=== PATIENT | female | born 1995 | race Two or more races ===

== ENCOUNTER 2018-06-15 11:08 | Day surgery (SDC) | payer OTHER ==
[~2018-06-15] VITALS: Ht 167.6 cm; Wt 77.6 kg
[2018-06-15] VITALS (9 sets, daily range): BP systolic 104–145; BP diastolic 62–73
[2018-06-15] MEDS ORDERED: celeBREX 200mg Cap **SURGERY PATIENTS ONLY ORAL ONE ×2 (12:56→13:00)
[2018-06-15] MEDS ORDERED: oxyCONTIN 20mg tab ORAL ONE ×2 (12:56→13:00)
[2018-06-15] MEDS ORDERED: IBUPROFEN600 MG ORAL (13:00)
[2018-06-15] MEDS ORDERED: ceFAZolin 1gm IVPB IVPB ONE ×2 (13:00)
--- NOTE | 2018-06-15 14:27 | Pre-Procedure Note/Attestation ---
Pre-Procedure Note/Attestation Complete Prior to Procedure Planned Procedure: right Procedure Narrative: forearm painful hardware Indications for Procedure Pre-Operative Diagnosis: sp right forearm orif Attestation I attest that I discussed the nature of the procedure; its benefits; risks and complications; and alternatives (and the risks and benefits of such alternatives ), prior to the procedure, with the patient (or the patient's legal floor representative). I attest that, if there was a reasonable possibility of needing a blood transfusion, the patient (or the patient's legal floor representative) was given the [facility] standardized written summary, pursuant to the Kuldip Saticoy Blood Safety Act ([place] Health and Safety Code # 1645, as amended). I attest that I re-evaluated the patient just prior to the surgery and that there has been no change in the patient's H&P, except as documented below: Peter Torres MD Jun 15, 2018 14:27
--- NOTE | 2018-06-15 14:28 | Operative Note - PDOC ---
Operative Note Operative Note Pre-op Diagnosis: sp right forearm orif Procedure: see op report Post-op Diagnosis: same as pre-op plus Operative Findings: consistent w/pre-op dx studies Anesthesia: MAC Specimen: none Complications: none Condition: stable Estimated Blood Loss: none Implant(s) used?: No Peter Torres MD Jun 15, 2018 14:28
[2018-06-15] MEDS ORDERED: D5 1/2NS 1,000 ML IV SCH (14:30)
[2018-06-15] MEDS ORDERED: Tylenol #3 tab (300mg/30mg) ORAL PRN (14:30)
[2018-06-15] MEDS ORDERED: HYDROmorphone 1mg/ml Carpuject SUBQ PRN (14:30)
[2018-06-15] MEDS ORDERED: fentaNYL 100 mcg/2 mL IV ONE (14:38)
[2018-06-15] MEDS ORDERED: Midazolam 2mg/2ml Inj ONE (14:38)
[2018-06-15] MEDS ORDERED: Bacitracin 50000 Units Vial ONE (15:10)
[2018-06-15] MEDS ORDERED: Bupivacaine 0.5% Inj 30 ml vial INJ ONE (15:10)
[2018-06-15] MEDS ORDERED: NS Irrig 1000ml IRRIG ONE (15:58)
[2018-06-15] MEDS ORDERED: LR 1000ml ONE (16:00)
[2018-06-15] MEDS ORDERED: Ketorolac 30mg Inj ONE (16:00)
[2018-06-15] MEDS ORDERED: Propofol 200mg/20ml IV ONE (16:00)
[2018-06-15] MEDS ORDERED: NS Irrig 2000ml IRRIG ONE (16:00)
[2018-06-15] MEDS ORDERED: Sterile Water Irrig 1000ml IRRIG ONE (16:00)
[2018-06-15] MEDS ORDERED: LR 1000ml 1,000 ML IVLG SCH (16:11)
--- NOTE | 2018-06-15 16:11 | Anethesia Preoperative Eval ---
Anesthesia Pre-op PMH/ROS General Date of Evaluation: Jun 15, 2018 Time of Evaluation: 15:10 Anesthesiologist: Narendra ASA Score: ASA 2 Mallampati Score Class I : Soft palate, uvula, fauces, pillars visible Class II: Soft palate, uvula, fauces visible Class III: Soft palate, base of uvula visible Class IV: Only hard plate visible Mallampati Classification: Class II Surgeon: Brian Diagnosis: Painful hardwear R arm Surgical Procedure: R arm hardwear removal Anesthesia History: none Family History: no anesthesia problems Allergies: Coded Allergies: No Known Allergies (Unverified , 06/15/18) Patient NPO?: Yes NPO Date: Jun 14, 2018 NPO Time: 2100 Past Medical History Cardiovascular: Denies: HTN, CAD, HI, valve dz, arrhythmia, other Pulmonary: Denies: asthma, COPD, JOSÉ LUIS, other Gastrointestinal/Genitourinary: Reports: GERD - mild Neurologic/Psychiatric: Reports: depression/anxiety; Denies: dementia, CVA, TIA, other Endocrine: Denies: DM, hypothyroidism, steroids, other HEENT: Denies: cataract (L), cataract (R), glaucoma, DOUGLAS (L), DOUGLAS (R), other Hematology/Immune: Denies: anemia, DVT, bleeding disorder, other Musculoskeletal/Integumentary: Denies: OA, RA, DJD, DDD, edema, other PMH Narrative: as above PSxH Narrative: ORIF R radius Fx. Anesthesia Pre-op Phys. Exam Physician Exam Last Vital Signs Date Time Temp Pulse Resp B/P (MAP) Pulse Ox O2 Delivery O2 Flow Rate FiO2 06/15/18 12:57 Room Air 06/15/18 12:49 97.8 87 18 104/67 (79) 100 Constitutional: NAD Neurologic: CN 2-12 intact Cardiovascular: RRR, no M/R/G Respiratory: CTA Gastrointestinal: S/NT/ND Airway Exam Mallampati Score: Class II MO: full Neck: flexible ROM: full Teeth: intact Dentures: no upper, no lower Anesthesia Pre-op A/P Labs see chart Urine Test Test 06/15/18 11:20 Urine HCG, Qualitative Negative (NEGATIVE) Risk Assessment & Plan Assessment: ASA 2 Plan: GA wth LMA R axillary block for postop pain control Status Change Before Surgery: No Pre-Antibiotics Drug: Ancef 1gr. Given Within 1 Hr of Incision: Yes Time Given: 15:32 Miky Mackey MD Jun 15, 2018 16:11
[2018-06-15] MEDS ORDERED: Meperidine 50mg/ml Inj(FOR RIGORS ONLY) IV PRN (16:15)
[2018-06-15] MEDS ORDERED: DiphenhydrAMINE 50mg/ml Inj IVP PRN (16:15)
[2018-06-15] MEDS ORDERED: Midazolam 2mg/2ml Inj IVP PRN (16:15)
[2018-06-15] MEDS ORDERED: Ketorolac 30mg Inj IV PRN (16:15)
[2018-06-15] MEDS ORDERED: Metoclopramide 10mg/2ml Inj IVP PRN (16:15)
--- NOTE | 2018-06-15 16:42 | Immediate Post-Op Evaluation ---
Immediate Post-Op Evalulation Immediate Post-Op Evalulation Procedure: R arm hardwear removal Date of Evaluation: Jun 15, 2018 Time of Evaluation: 16:41 IV Fluids: 1000 Blood Products: none Estimated Blood Loss: min Urinary Output: none Blood Pressure Systolic: 133 Blood Pressure Diastolic: 71 Pulse Rate: 87 Respiratory Rate: 20 O2 Sat by Pulse Oximetry: 99 Temperature (Fahrenheit): 98.6 Pain Score (1-10): 1 Nausea: No Vomiting: No Complications none Patient Status: reacts, none Hydration Status: adequate Miky Mackey MD Jun 15, 2018 16:42
[2018-06-15] MEDS ORDERED: Norco 5mg/325mg tab ORAL PRN (17:14)
--- NOTE | 2018-06-15 17:32 | 48 Hour Post Anesthesia Eval ---
Post Anesthesia Evaluation Procedure: R arm hardwear removal Date of Evaluation: Jun 15, 2018 Time of Evaluation: 17:31 Blood Pressure Systolic: 113 0: 66 Pulse Rate: 84 Respiratory Rate: 20 Temperature (Fahrenheit): 97.8 O2 Sat by Pulse Oximetry: 98 Airway: patent Nausea: No Vomiting: No Pain Intensity: 1 Hydration Status: adequate Cardiopulmonary Status: stable Mental Status/LOC: patient returned to baseline Follow-up Care/Observations: n/a Post-Anesthesia Complications: none Follow-up care needed: ready to discharge Miky Mackey MD Jun 15, 2018 17:32
--- NOTE | 2018-06-15 21:45 | Operative Note - Dictated ---
DATE OF OPERATION: 06/15/2018 PREOPERATIVE DIAGNOSES: 1. Status post ORIF, right distal radius fracture. 2. Right forearm painful hardware. 3. Hypertrophic keloid, right forearm. POSTOPERATIVE DIAGNOSES: 1. Status post ORIF, right distal radius fracture. 2. Right forearm painful hardware. 3. Hypertrophic keloid, right forearm. PROCEDURES: 1. Removal of right forearm hardware, 1 plate and 6 screws. 2. Complex closure, 6 cm right forearm keloid. SURGEON: Peter Torres M.D. ANESTHESIA: Axillary with general. INDICATION FOR PROCEDURE: The patient is a pleasant female who sustained a fracture to the radius, underwent open reduction and internal fixation, subsequently had pain secondary to hardware, and elected to undergo removal of the hardware once the fracture was healed. Risks, limitations, expectations, and complications related to the procedure were discussed in detail. All questions were addressed. DESCRIPTION OF PROCEDURE: After informed consent was obtained, the patient was brought to the operating room. The patient was placed under general anesthesia. The patient then had the right arm prepped and draped in sterile manner. Time-out was performed. Esmarch was used to exsanguinate the extremity. The previous keloid scar was removed. Blunt dissection down to the subcutaneous tissue was performed. Once that was done, Hill volar approach to the distal radius was performed with care to maintain the neurovascular structures as much as possible. The previous dissection was used. Once that was done, the plate was identified and skeletonized off any soft tissues. The 6 screws were removed along with the plate. The holes were filled with bone graft. The wound was copiously irrigated. Complex closure of the right forearm incision was performed using 2-0 Vicryl suture and 3-0 Monocryl sutures. Dermabond and compression dressing. The patient was awoken and taken to recovery room with stable vital signs. ESTIMATED BLOOD LOSS: None. COMPLICATIONS: None. SPECIMENS: None. EXPLANTS: Include 1 plate and 6 screws. Peter Torres M.D. DR: Franklin JOB#: [id number] CC: OLGA
== END 2018-06-15 18:10 | disposition home or self-care (01) ==
LOC: SUR 11:08
DX: T85.848A Pain due to other internal prosthetic devices, implants and grafts, initial encounter (principal); L91.0 Hypertrophic scar; Y83.9 Surgical procedure, unspecified as the cause of abnormal reaction of the patient, or of later complication, without mention of misadventure at the time of the procedure; K21.9 Gastro-esophageal reflux disease without esophagitis; F32.9 Major depressive disorder, single episode, unspecified; F41.9 Anxiety disorder, unspecified
CPT/HCPCS: 20680; 81025; J1885; J2250; J2405; J2704; J3010; 94003; 94150